=== PATIENT | female | born 1965 | race Caucasian/White ===

== ENCOUNTER 2016-11-10 14:47 | Outpatient (CLI) | payer OTHER | END 2016-11-10 14:48 | disposition home or self-care (01) | DX: Z12.31 Encounter for screening mammogram for malignant neoplasm of breast (principal) ==

== ENCOUNTER 2017-07-19 08:27 | Outpatient (CLI) | payer OTHER ==
--- NOTE | 2017-07-19 09:38 | Ultrasound Report ---
NECK ULTRASOUND: 07/19/2017 CLINICAL INDICATION: Possible lymphadenopathy. TECHNIQUE: Real-time scanning was performed with motor vehicle field representative static images obtained. FINDINGS: Ultrasound of the palpable abnormality identified by the patient was performed. At this site, there is a normal appearing lymph node, measuring 8 x 8 x 6 mm. No lymphadenopathy is i dentified. IMPRESSION: NORMAL SIZED LYMPH NODE, CORRELATING WITH THE PALPABLE ABNORMALITY. JOB #: [id number] EXT JOB #:[id number]
== END 2017-07-19 08:28 | disposition home or self-care (01) ==
LOC: DI 08:27
PROVIDERS: ATTEND Surgery
DX: R59.1 Generalized enlarged lymph nodes (principal)
CPT/HCPCS: 76536

== ENCOUNTER 2018-06-05 09:20 | Outpatient (CLI) | payer OTHER ==
[2018-06-05 12:11] LABS: BASOPHILS # (AUTO) 0.1 10^3/uL (0.0-0.1); EOSINOPHILS # (AUTO) 0.2 10^3/uL (0.0-0.7); LYMPHOCYTES # (AUTO) 1.6 10^3/uL (1.5-3.5); RED CELL DISTRIBUTION WIDTH 13.6 % (12.0-15.0)
[2018-06-05 12:23] LABS: BASOPHILS % (AUTO) 0.9 %; EOSINOPHILS % (AUTO) 2.3 %; HGB - HEMOGLOBIN 13.5 g/dL (12.0-16.0); LYMPHOCYTES % (AUTO) 20.4 %; MEAN CORPUSCULAR HEMOGLOBIN 31.5 pg (27.0-31.0); MEAN CORPUSCULAR HGB CONC 34.7 g/dL (32.0-36.0); MEAN CORPUSCULAR VOLUME 90.9 fL (81.0-99.0); MEAN PLATELET VOLUME 8.6 fL (7.9-10.8); MONOCYTES # (AUTO) 0.6 10^3/uL (0.0-1.0); MONOCYTES % (AUTO) 7.2 %; NEUTROPHILS # (AUTO) 5.3 10^3/uL (1.5-6.6); NEUTROPHILS % (AUTO) 69.2 %; PLT - PLATELET COUNT 257 10^3/uL (130-450); RED BLOOD COUNT 4.28 10^6/uL (4.20-5.40); WHITE BLOOD COUNT 7.6 x10^3/uL (4.8-10.8)
[2018-06-05 12:30] LABS: ALBUMIN/GLOBULIN RATIO 1.1 (1.0-2.2); ALKALINE PHOSPHATASE 86 IU/L (42-121); ALT ALANINE AMINOTRANSFERASE 13 IU/L (10-60); AST ASPARTATE AMINOTRANSFERASE 19 IU/L (10-42); BILIRUBIN,TOTAL 0.9 mg/dL (0.2-1.0); BUN - BLOOD UREA NITROGEN 14 mg/dL (6-20); CALCIUM 8.8 mg/dL (8.5-10.3); CARBON DIOXIDE - CO2 24 mmol/L (21-32); CHLORIDE 105 mmol/L (101-111); CHOL/HDL RATIO 2.7 (<4.4); CHOLESTEROL 239 mg/dL; CREATININE 0.5 mg/dL (0.4-1.0); GFR - MDRD 131 (>89); GLUCOSE 99 mg/dL (70-100); HDL CHOLESTEROL 87 mg/dL; LDL CHOLESTEROL,CALCULATED 139 mg/dL; LDL/HDL RATIO 1.6 (<4.4); SODIUM 136 mmol/L (135-145); TOTAL PROTEIN 7.6 g/dL (6.7-8.2); VLDL CHOLESTEROL 13 mg/dL
== END 2018-06-05 09:21 ==
LOC: LAB.WCP 09:20
PROVIDERS: ATTEND Family Medicine
DX: Z00.00 Encounter for general adult medical examination without abnormal findings (principal)
CPT/HCPCS: 36415; 80053; 80061; 83721; 84443; 85025

== ENCOUNTER 2018-08-05 09:14 | Emergency (ER) | payer OTHER ==
[2018-08-05] MEDS ORDERED: BUPIVACAINE 0.5% PF 10 ML VIAL SUBQ STA (09:35)
--- NOTE | 2018-08-05 09:38 | ED Physician Documentation ---
History of Present Illness - Stated complaint Stated Complaint: FINGER LAC - Chief complaint Chief Complaint: Laceration - Additonal information Additional information: hx from pt 52 f lac to index finger on clean knife tdap UTD Review of Systems Skin: reports: Laceration (s) PD PAST MEDICAL HISTORY - Past Medical History Cardiovascular: None Respiratory: None Endocrine/Autoimmune: None GI: None STRUCTURAL IRON ERECTOR: Endometriosis : None HEENT: None Psych: Depression, Anxiety, Panic attacks Musculoskeletal: Osteoarthritis Derm: Other drug resistant infections - Past Surgical History Past Surgical History: Yes General: Cholecystectomy, Colonoscopy Ortho: Arthroscopic surgery /STRUCTURAL IRON ERECTOR: Dilation and currettage, Hysterectomy, LEEP (Cervical surgery) - Present Medications Home Medications: Ambulatory Orders Medication Instructions Recorded Confirmed Acetaminophen [Tylenol Extra 1,000 mg PO BID PRN 03/18/13 06/15/15 Strength] Multivitamin [Multivitamins] 1 each PO DAILY 03/18/13 06/15/15 Sertraline HCl [Zoloft] 200 mg PO DAILY 03/18/13 06/15/15 Zolpidem [Ambien] 10 mg PO HS 02/16/14 06/15/15 Levothyroxine [Synthroid] 25 mcg 06/15/15 06/15/15 - Allergies Allergies/Adverse Reactions: Allergies Allergy/AdvReac Type Severity Reaction Status Date / Time ibuprofen [From Motrin] Allergy Severe Respiratory Verified 06/15/15 13:40 aspirin Allergy Intermediate Hives Verified 06/15/15 13:40 Penicillins Allergy Intermediate Hives Verified 06/15/15 13:40 acetaminophen [From Percocet] Allergy Nausea Verified 06/15/15 13:40 oxycodone HCl * Allergy Nausea Verified 06/15/15 13:40 [From Percocet] IV CONTRAST Allergy Severe Respiratory Uncoded 06/15/15 13:40 - Social History Does the pt smoke?: No Smoking Status: Never smoker Does the pt drink ETOH?: Yes Does the pt have substance abuse?: No - Immunizations Immunizations are current?: Yes PD ED PE NORMAL - Vitals Vital signs reviewed: Yes - Derm Derm: Other (lac to radial aspect L index from DIP to tip, curved flap like, MSV and tendon fxn intact, no FB seen or palpated) Results - Vitals Vitals: Vital Signs - 24 hr 08/05/18 09:25 Temperature 36.4 C L Heart Rate 77 Respiratory 16 Rate Blood Pressure 128/83 H O2 Saturation 100 Oxygen O2 Source Room air Procedures - Laceration (location) finger Length in cm: 2 Wound type: Curved Neurovascular status: Sensory intact, Motor intact Anesthesia: Lidocaine 1%, Marcaine 0.5% Wound Preparation: Irrigated copiously NS (by tech) Skin layer closure: Nylon, Interrupted, Size #-0 - enter number (5), Sutures - enter # (3) Other: Patient tolerated well, No complications, Neurovascular intact (still with dig block), Dressing applied, Tetanus UTD Complexity: Simple Departure - Departure Disposition: 01 Home, Self Care Clinical Impression: Laceration Condition: Good Instructions: ED Laceration Hand Comments: Wear the splint to avoid bending the finger and pulling the sutures out Keep the wound clean and apply antibiotic ointment every day Even with good wound care, some cuts get infected - please return for any redness swelling discharge fever or excessive pain Sutures out in 7-10 days
[2018-08-05] MEDS ORDERED: LIDOCAINE 1% 10 ML MDV SUBQ ONE (10:10)
[2018-08-05] MEDS ORDERED: LIDOCAINE 1% 2 ML VIAL ONE (10:23)
[2018-08-05 11:19] VITALS: BP 112/88
== END 2018-08-05 11:18 | disposition home or self-care (01) ==
LOC: ED 09:14
DX: S61.211A Laceration without foreign body of left index finger without damage to nail, initial encounter (principal); W26.0XXA Contact with knife, initial encounter; Y93.89 Activity, other specified
CPT/HCPCS: 12001; 99283

== ENCOUNTER 2018-09-07 10:36 | Outpatient (CLI) | payer OTHER ==
--- NOTE | 2018-09-10 08:28 | Mammography Report ---
Reason: SCREENING MAMMO Procedure Date: 09/07/2018 Accession Number: [id number] / [id number] Procedure: MGN - Screening Mammo Dig Bilat CPT Code: FULL RESULT: EXAM: Screening Mammo Dig Bilat DATE: 09/07/2018 11:11 AM CLINICAL HISTORY: 52-year-old female with history of late childbearing presents for screening. TECHNIQUE: Bilateral CC and MLO views were obtained. COMPARISON: 11/10/2016, 02/12/2013. FINDINGS: The breasts demonstrate scattered fibroglandular densities bilaterally. No suspicious masses, clustered microcalcifications, or regions of architectural distortion are identified. IMPRESSION: Negative examination RECOMMENDATION: Routine annual screening unless otherwise clinically indicated. BIRADS CATEGORY 1: Negative STANDARD QUALIFYING STATEMENTS: 1. This examination was reviewed with the aid of Computer-Aided Detection (CAD). 2. A negative or benign imaging report should not delay biopsy if clinically suspicious findings are present. Consider surgical consultation if warranted. More than 5% of cancers are not identified by imaging. 3. Dense breasts may obscure an underlying neoplasm. 4. This examination was reviewed without the aid of 3D breast imaging (tomosynthesis).
== END 2018-09-07 10:37 | disposition home or self-care (01) ==
LOC: DI.N 10:36
DX: Z12.31 Encounter for screening mammogram for malignant neoplasm of breast (principal)
CPT/HCPCS: 77067

== ENCOUNTER 2018-09-08 16:21 | Outpatient (CLI) | payer OTHER ==
--- NOTE | 2018-09-09 09:42 | MRI Report ---
Reason: SHOUDLER PAIN, RIGHT Procedure Date: 09/08/2018 Accession Number: [id number] / [id number] Procedure: MRI - Shoulder RT W/O CPT Code: FULL RESULT: EXAM: RIGHT SHOULDER MRI WITHOUT CONTRAST EXAM DATE: 09/08/2018 05:26 PM. CLINICAL HISTORY: SHOUDLER PAIN, RIGHT. COMPARISON: 08/06/2018 right shoulder radiographs.. TECHNIQUE: Multiplanar, multisequence T1-weighted and fluid-sensitive sequences of the shoulder without contrast. Other: None. FINDINGS: Acromioclavicular Region: The acromion is type II. Mild acromioclavicular joint osteoarthrosis, with subchondral edema and capsular hypertrophy surrounding the joint. Minimal mass-effect upon the supraspinatus tendon within the outlet. The coracoacromial and coracoclavicular ligaments are intact. Small amount of fluid within the subacromial-subdeltoid bursa. Glenohumeral Region: No subluxation. No effusion or loose bodies. The articular cartilage is unremarkable. The glenohumeral ligaments and joint capsule are unremarkable. Bone Marrow: No fracture, marrow edema or bone lesions. Labrum: The labrum is unremarkable on this nonarthrographic study. Musculature/Rotator Cuff: Deep partial thickness articular sided tear of the posterior fibers of the supraspinatus tendon measuring 8 x 8 mm (sagittal series 6 image 17 and coronal series 5 image 12), extending through 60% of the tendon thickness. There is also a bursal sided fraying of the insertional fibers of the supraspinatus tendon. The infraspinatus, teres minor, and subscapularis tendons are intact. No edema or fatty atrophy. Biceps Tendon: The long head of the biceps tendon and biceps gary are intact. Other: The subcutaneous tissues are unremarkable. IMPRESSION: 1. Deep partial thickness articular sided tearing of the posterior fibers of the distal supraspinatus tendon measuring 8 x 8 mm and extending through 60% of the tendon thickness. There is also a bursal sided fraying of the insertional fibers of the supraspinatus tendon. No full-thickness supraspinatus tendon tear. 2. Intact infraspinatus, teres minor, and subscapularis tendons. 3. Grossly intact labrum. 4. Mild acromioclavicular joint osteoarthrosis. 5. Mild subacromial-subdeltoid bursitis. [facility] MUSCULOSKELETAL RADIOLOGY SECTION
== END 2018-09-08 16:22 | disposition home or self-care (01) ==
LOC: DI 16:21
PROVIDERS: ATTEND Orthopaedic Surgery Sports Medicine
DX: M75.101 Unspecified rotator cuff tear or rupture of right shoulder, not specified as traumatic (principal); M19.011 Primary osteoarthritis, right shoulder; M75.51 Bursitis of right shoulder

== ENCOUNTER 2019-09-10 16:13 | Outpatient (CLI) | payer SELFPAY ==
--- NOTE | 2019-09-11 13:22 | XRAY Report ---
Reason: LEFT ARM PAIN Procedure Date: 09/10/2019 Accession Number: [id number] / [id number] Procedure: WCP - Forearm LT CPT Code: Final Report FULL RESULT: EXAM: LEFT FOREARM RADIOGRAPHY EXAM DATE: 09/10/2019 04:13 PM. CLINICAL HISTORY: LEFT ARM PAIN. COMPARISON: None. TECHNIQUE: 2 views. FINDINGS: Bones: Normal. No fractures or bone lesions. Joints: Normal. No effusions or subluxations in the visualized wrist or elbow joints. Soft Tissues: Normal. No soft tissue swelling. IMPRESSION: Normal forearm radiography. [facility]
== END 2019-09-10 23:59 | disposition home or self-care (01) ==
LOC: DI.WCP 16:13
PROVIDERS: ATTEND Physician Assistant Medical
DX: M79.602 Pain in left arm (principal)

== ENCOUNTER 2019-12-16 08:48 | Outpatient (CLI) | payer MEDICAID ==
[2019-12-16 12:21] LABS: BASOPHILS # (AUTO) 0.1 10^3/uL (0.0-0.1); BASOPHILS % (AUTO) 1.3 %; EOSINOPHILS # (AUTO) 0.3 10^3/uL (0.0-0.7); EOSINOPHILS % (AUTO) 3.9 %; HGB - HEMOGLOBIN 13.5 g/dL (12.0-16.0); LYMPHOCYTES # (AUTO) 2.4 10^3/uL (1.5-3.5); MEAN CORPUSCULAR HEMOGLOBIN 30.5 pg (27.0-31.0); MEAN CORPUSCULAR HGB CONC 33.5 g/dL (32.0-36.0); MEAN CORPUSCULAR VOLUME 91.2 fL (81.0-99.0); MEAN PLATELET VOLUME 10.7 fL (7.9-10.8); MONOCYTES # (AUTO) 0.4 10^3/uL (0.0-1.0); MONOCYTES % (AUTO) 6.7 %; NEUTROPHILS # (AUTO) 3.2 10^3/uL (1.5-6.6); NEUTROPHILS % (AUTO) 49.9 %; PLT - PLATELET COUNT 268 10^3/uL (130-450); RED BLOOD COUNT 4.42 10^6/uL (4.20-5.40); RED CELL DISTRIBUTION WIDTH 12.5 % (12.0-15.0); WHITE BLOOD COUNT 6.4 x10^3/uL (4.8-10.8)
[2019-12-16 13:35] LABS: ALBUMIN 4.3 g/dL (3.2-5.5); ALBUMIN/GLOBULIN RATIO 1.3 (1.0-2.2); BILIRUBIN,TOTAL 0.8 mg/dL (0.2-1.0); CALCIUM 9.2 mg/dL (8.5-10.3); CREATININE 0.6 mg/dL (0.4-1.0); TOTAL PROTEIN 7.7 g/dL (6.7-8.2)
== END 2019-12-16 23:59 | disposition home or self-care (01) ==
LOC: LAB.WCP 08:48
PROVIDERS: ATTEND Family Medicine
DX: R19.00 Intra-abdominal and pelvic swelling, mass and lump, unspecified site (principal)
CPT/HCPCS: 36415; 80053; 83690; 85025

== ENCOUNTER 2019-12-18 13:23 | Outpatient (CLI) | payer MEDICAID ==
[2019-12-18] MEDS ORDERED: IOVERSOL 320 50 ML VIAL ONE (13:35)
[2019-12-18] MEDS ORDERED: IOVERSOL 320 100 ML VIAL IVP ONE ×2 (13:36→14:42)
[2019-12-18] MEDS ORDERED: IOVERSOL 320 50 ML VIAL PO ONE (14:42)
--- NOTE | 2019-12-19 14:37 | CT Report ---
Reason: ABD MASS Procedure Date: 12/18/2019 Accession Number: [id number] / [id number] Procedure: CT - ABDOMEN W CPT Code: Final Report FULL RESULT: EXAM: CT ABDOMEN WITHOUT AND WITH CONTRAST. EXAM DATE: 12/18/2019 02:40 PM. CLINICAL HISTORY: Palpable abdominal mass. Painful site is marked for purposes of the examination. COMPARISONS: ABDOMEN/PELVIS W/O 04/22/2016 5:58 PM. TECHNIQUE: Multiphasic CT of abdomen (pancreas) without and with IV contrast: 80 mL Optiray 320. Enteric contrast: Yes. Reconstructions: Coronal and sagittal. In accordance with CT protocol optimization, one or more of the following dose reduction techniques were utilized for this exam: automated exposure control, adjustment of mA and/or KV based on patient size, or use of iterative reconstructive technique. FINDINGS: Lung Bases: Unremarkable. Pancreas: Normal. No mass, inflammation, or ductal dilatation. No pseudocysts or pancreatic necrosis. Other Solid Organs: Normal. No masses or abnormal enhancement. Gallbladder/Biliary System: Status post cholecystectomy. Bowel: The visualized bowel is unremarkable. Soft Tissues: No free fluid or adenopathy. Bones: Normal. Other: The xiphoid process curves ventrally with its tip 3 cm cranial to the marker along the ventral abdominal wall. This potentially correlates to the palpable finding. No other ventral abdominal mass or hernia is detected. IMPRESSION: Ventrally curved xiphoid process as described above. [facility]
== END 2019-12-18 13:24 | disposition home or self-care (01) ==
LOC: DI 13:23
PROVIDERS: ATTEND Family Medicine
DX: Q76.7 Congenital malformation of sternum (principal)
CPT/HCPCS: 74160; Q9967

== ENCOUNTER 2020-07-06 14:43 | Outpatient (CLI) | payer MEDICAID | END 2020-07-06 14:44 | disposition home or self-care (01) | LOC: COV 14:43 | PROVIDERS: ATTEND Family Medicine | DX: Z20.828 Contact with and (suspected) exposure to other viral communicable diseases (principal) ==

== ENCOUNTER 2020-08-20 08:00 | Outpatient (CLI) | payer MEDICAID ==
[2020-08-20 18:48] LABS: HGB - HEMOGLOBIN 13.6 g/dL (12.0-16.0); MEAN CORPUSCULAR HEMOGLOBIN 31.3 pg (27.0-31.0); MEAN CORPUSCULAR HGB CONC 34.4 g/dL (32.0-36.0); MEAN PLATELET VOLUME 11.2 fL (7.9-10.8); RED BLOOD COUNT 4.34 10^6/uL (4.20-5.40); WHITE BLOOD COUNT 8.1 x10^3/uL (4.8-10.8)
[2020-08-20 19:04] LABS: ALBUMIN 4.6 g/dL (3.2-5.5); ALBUMIN/GLOBULIN RATIO 1.3 (1.0-2.2); ALKALINE PHOSPHATASE 87 IU/L (42-121); ALT ALANINE AMINOTRANSFERASE 13 IU/L (10-60); AST ASPARTATE AMINOTRANSFERASE 19 IU/L (10-42); BUN - BLOOD UREA NITROGEN 11 mg/dL (6-20); CALCIUM 9.2 mg/dL (8.5-10.3); CARBON DIOXIDE - CO2 26 mmol/L (21-32); CHLORIDE 106 mmol/L (101-111); CREATININE 0.8 mg/dL (0.4-1.0); GLUCOSE 84 mg/dL (70-100); SODIUM 142 mmol/L (135-145); TOTAL PROTEIN 8.1 g/dL (6.7-8.2); URIC ACID 5.2 mg/dL (2.6-7.2)
[2020-08-20 19:19] LABS: RHEUMATOID FACTOR NEGATIVE (Negative)
[2020-08-20 20:03] LABS: CRP - C-REACTIVE PROTEIN < 1.0 mg/dL (0-1.0)
[2020-08-22 11:17] LABS: ANA SCREEN NEGATIVE (NEGATIVE)
[2020-08-22 15:36] LABS: DNA (DS) ANTIBODY <1 IU/mL
[2020-08-22 21:51] LABS: CYCLIC CITRULL PEPTIDE CCP IGG <16 UNITS
== END 2020-08-20 23:59 | disposition home or self-care (01) ==
LOC: LAB.WCP 08:00
PROVIDERS: ATTEND Family Medicine
DX: E03.9 Hypothyroidism, unspecified (principal); R60.9 Edema, unspecified; M25.50 Pain in unspecified joint; D68.59 Other primary thrombophilia; Z01.818 Encounter for other preprocedural examination; M54.5 Low back pain; N94.3 Premenstrual tension syndrome; N80.9 Endometriosis, unspecified; M54.30 Sciatica, unspecified side; M32.9 Systemic lupus erythematosus, unspecified
CPT/HCPCS: 36415; 80053; 84443; 84550; 85027; 85651; 86038; 86140; 86200; 86225; 86430

== ENCOUNTER 2020-12-18 08:00 | Outpatient (CLI) | payer MEDICAID | END 2020-12-18 23:59 | disposition home or self-care (01) | LOC: COV 08:00 | PROVIDERS: ATTEND Family Medicine | DX: Z20.822 Contact with and (suspected) exposure to COVID-19 (principal) ==

== ENCOUNTER 2021-11-29 10:21 | Outpatient (CLI) | payer MEDICAID ==
[2021-11-29 12:03] LABS: CALCIUM 9.4 mg/dL (8.5-10.3); CREATININE 0.6 mg/dL (0.4-1.0); POTASSIUM 4.4 mmol/L (3.5-5.0)
[2021-11-29 12:11] LABS: THYROID STIMULATING HORMONE 1.5 uIU/mL (0.34-5.60)
== END 2021-11-29 10:22 | disposition home or self-care (01) ==
LOC: LAB.N 10:21
PROVIDERS: ATTEND Family Medicine
DX: E03.9 Hypothyroidism, unspecified (principal); R60.9 Edema, unspecified
CPT/HCPCS: 36415; 80048; 84443

== ENCOUNTER 2024-06-27 14:36 | Outpatient (CLI) | payer MEDICAID ==
[2024-06-27 18:08] LABS: BASOPHILS # (AUTO) 0.1 10^3/uL (0.0-0.1); BASOPHILS % (AUTO) 0.9 %; EOSINOPHILS # (AUTO) 0.2 10^3/uL (0.0-0.7); EOSINOPHILS % (AUTO) 2.2 %; HCT - HEMATOCRIT 41.9 % (37.0-47.0); HGB - HEMOGLOBIN 14.3 g/dL (12.0-16.0); LYMPHOCYTES # (AUTO) 2.6 10^3/uL (1.5-3.5); LYMPHOCYTES % (AUTO) 29.1 %; MEAN CORPUSCULAR HEMOGLOBIN 31.1 pg (27.0-31.0); MEAN CORPUSCULAR HGB CONC 34.1 g/dL (32.0-36.0); MEAN CORPUSCULAR VOLUME 91.1 fL (81.0-99.0); MEAN PLATELET VOLUME 10.3 fL (7.9-10.8); MONOCYTES # (AUTO) 0.6 10^3/uL (0.0-1.0); MONOCYTES % (AUTO) 6.4 %; NEUTROPHILS # (AUTO) 5.5 10^3/uL (1.5-6.6); NEUTROPHILS % (AUTO) 61.3 %; PLT - PLATELET COUNT 320 10^3/uL (130-450); RED CELL DISTRIBUTION WIDTH 12.7 % (12.0-15.0); WHITE BLOOD COUNT 8.9 x10^3/uL (4.8-10.8)
[2024-06-27 18:49] LABS: ALBUMIN 4.6 g/dL (3.2-5.5); ALBUMIN/GLOBULIN RATIO 1.4 (1.0-2.2); BILIRUBIN,TOTAL 0.6 mg/dL (0.2-1.0); CREATININE 0.6 mg/dL (0.6-1.3); TOTAL PROTEIN 7.9 g/dL (6.4-8.9)
[2024-06-27 18:56] LABS: THYROID STIMULATING HORMONE 0.99 uIU/mL (0.34-5.60)
== END 2024-06-27 14:37 | disposition home or self-care (01) ==
LOC: LAB.N 14:36
PROVIDERS: ATTEND Nurse Practitioner Family
DX: R60.9 Edema, unspecified (principal); E03.9 Hypothyroidism, unspecified
CPT/HCPCS: 36415; 80053; 84443; 85025